=== PATIENT | female | born 1990 | race African-American/Black ===

== ENCOUNTER 2017-08-15 03:53 | Emergency (ER) | payer OTHER ==
[~2017-08-15] VITALS: Ht 175.3 cm; Wt 75.3 kg
[2017-08-15] MEDS ORDERED: AUGMENTIN 875-1 EACH PO (05:04)
== END 2017-08-15 05:20 | disposition home or self-care (01) ==
LOC: ER 03:53
DX: J06.9 Acute upper respiratory infection, unspecified (principal)